=== PATIENT | male | born 1995 | race Caucasian/White ===

== ENCOUNTER 2017-04-25 16:08 | Emergency (ER) | payer BC ==
--- NOTE | ~2017-04-25 | ER ---
PATIENT'S NAME: JOSH MONTILLA [facility] AGE: 21 Y [address] ROOM: [place] [id number] LOCATION: ED ADMIT DATE: 04/25/2017 ER/Outpatient Report DISCHARGE DATE: 04/25/2017 FAMILY PHYSICIAN: PHYSICIAN, NO ATTENDING PHYSICIAN: Remi Pérez Time of Arrival: 1612 hours. Time of Exam: 1612 hours. CHIEF COMPLAINT: Tooth abscess. HISTORY OF PRESENT ILLNESS: The patient states he has had problems with the right lower posterior tooth for the past 2 days. He has had issues with it longer than that, but it has been swollen around it and painful for the last 2 days. He is scheduled to see a dentist on Friday. ALLERGIES: PENICILLIN AND CEPHALOSPORINS. CURRENT MEDICATIONS: Aspirin. PAST SURGERIES: Negative. SOCIAL HISTORY: He does smoke half pack to one pack per day. Does drink alcohol on a social basis and uses cocaine and marijuana on a casual basis. REVIEW OF SYSTEMS: Negative other than those mentioned in the HPI. PHYSICAL EXAMINATION: VITAL SIGNS: He weighs 62.7 kg. Blood pressure is 131/75, pulse of 97, respirations are 16, temperature of 97.9, and O2 saturation was 100% on room air. GENERAL: He is awake, alert, and oriented x4. SKIN: [place], warm, and dry. RESPIRATIONS: Even and nonlabored. Lung sounds are clear throughout. HEART: Regular rate and rhythm. HEENT: Oropharynx: The patient has a broken tooth, i.e., the right posterior middle molar, that is broken off and the tooth in front of and behind it looks abscessed. He has teeth in various stages of decay in his mouth. The area PATIENT'S NAME: JOSH MONTILLA [facility] AGE: 21 Y [address] ROOM: [place] [id number] LOCATION: [facility] ADMIT DATE: 04/25/2017 ER/Outpatient Report DISCHARGE DATE: 04/25/2017 FAMILY PHYSICIAN: PHYSICIAN, NO ATTENDING PHYSICIAN: Remi Pérez around the broken tooth is reddened and swollen. No drainage is noted. IMPRESSION: Abscessed tooth. PLAN: Home, rest. Rinse the tooth frequently with warm salt water and mouthwash. Tylenol or ibuprofen for discomfort. Prescription was written for Bactrim DS b.i.d. x10 days. Follow up with primary provider if symptoms persist or worsen. Keep the scheduled dentist appointment. SERA TEJEDA APRN FOR DO TIAGO RAMOS/beti /[id number] d: 04/25/17 1929 t: 04/29/17 1258, OUTPATIENT REPORT
== END 2017-04-25 16:25 | disposition disaster alternative care site (69) ==
LOC: GMED 16:08
DX: K04.7 Periapical abscess without sinus (principal); F17.210 Nicotine dependence, cigarettes, uncomplicated; Z88.0 Allergy status to penicillin; Z79.82 Long term (current) use of aspirin